=== PATIENT | male | born 1940 | race Caucasian/White ===

== ENCOUNTER 2017-04-14 19:19 | Inpatient (IN) ==
[2017-04-14] MEDS ORDERED: cefTRIAXone 1,000 MG in SODIUM CHLORIDE 0.9% 100 ML IV STA (19:47)
[2017-04-14] MEDS ORDERED: methylPREDNISolone SOD SUC 125 MG/2 ML VIAL IV STA (19:47)
[2017-04-14] MEDS ORDERED: AZITHROMYCIN INJ 500 MG in SODIUM CHLORIDE 0.9% 250 ML IV STA (19:47)
[2017-04-14] MEDS ORDERED: FUROSEMIDE 40 MG/4 ML VIAL IV STA (19:49)
--- NOTE | 2017-04-14 19:57 | Emergency Department Note ---
Arrival - Arrival Chief Complaint: Shortness of Breath ED Nursing Triage Note: Pt arrives via ems from home with complaints of weakness and worsening of condition over the last two months. Pt's family states that he wants him placed into a fpc. Pt is having increased weakness and shortness of breath. History of bone cancer and copd. Pt at time of triage has no complaints states that he feels better after ems gave breathing treatment. Denies any fever or productive cough. Mode of Arrival: Stretcher Time Seen by Provider: 04/14/17 19:47 - History of Present Illness HPI Narrative: This 76-year-old white male presents with 2 months of progressive cough, intermittent wheeze, dyspnea on exertion, orthopnea, PND, and pedal edema. He denies any chest pain, diaphoresis, nausea, vomiting, hemoptysis, or rapid heartbeat. The patient has a history of atrial fibrillation, bone cancer, and COPD. The patient lives with himself and has had significant problems taking care of himself with his increased debility and would be interested in fpc placement. Currently he is in no acute medical distress. Onset (ago): month(s) (Patient presents with 2 months of decline) Allergies/Adverse Reactions: Allergies Allergy/AdvReac Type Severity Reaction Status Date / Time Iodinated Contrast Media - Allergy Severe ANAPHYLAXIS Verified 02/23/17 09:33 Oral and Home Medications: Home Medications Medication Instructions Recorded Confirmed Type Apixaban [Eliquis] 2.5 mg PO BID 02/22/17 04/14/17 History Budesonide/Formoterol 160-4.5 2 puff INH BID 02/22/17 04/14/17 History [Symbicort 160-4.5] Ipratropium/Albuterol Inhaler 1 puff INH QID 02/22/17 04/14/17 History [Combivent Respimat Inhaler] Metoprolol Succinate 100 mg PO DAILY 02/22/17 04/14/17 History Pantoprazole Tab [Protonix Tab] 40 mg PO DAILY 02/22/17 04/14/17 History Diltiazem Cd Cap [Cardizem CD] 1 tablet PO DAILY 03/28/17 04/14/17 History Albuterol/Ipratropium Neb [Duoneb] 3 ml RESP TX RT BID 04/08/17 04/14/17 Rx Review of System - Review of System 12 point system: reviewed and no additional remarkable complaints except as stated - Review of System Constitutional: Present: as per HPI Respiratory: Present: as per HPI Cardiovascular: Present: as per HPI Gastrointestinal: Present: as per HPI Musculoskeletal: Present: as per HPI Medical,Surgical,& Family Hx - Medical History Cardio: History of: Cardiac Dysrhythmia (a-fib), Hypertension (medication) Neurology: History of: Cerebrovascular Accident No history of: Seizures Respiratory: History of: COPD, Pneumonia Comment Only: Respiratory Problems (had flu and pnuemonia vaccine) Gastrointestinal: History of: GERD Other: History of: Cancer (multiple Myloma) - Surgical History Cardiac Surgeries: Patient Denies: Femoral-Popliteal Bypass Graft, Cardiac Catheterization, Cardiac Surgery, Carotid Endarterectomy, Internal Defibrillator, Vascular Access Devices Thoracic Surgeries: Patient denies;: Kidney (Renal Surgery), Lithotripsy, Nephrectomy, Organ Transplant, Lobectomy Neurologic Surgeries: Patient denies: Neurologic Surgery HEENT Surgeries: Patient denies: Carotid Endarterectomy Abdominal Surgeries: Patient denies: Abdominal Surgery, Appendectomy, Cholecystectomy, Colonoscopy , Gastric Bypass Surgery, EGD, Hernia Repair, Splenectomy Reproductive Surgeries: Patient denies;: Breast Surgery, Cystoscopy, Genitourinary Surgery, Prostate Surgery, Vasectomy Orthopedic Surgeries: Surgical HX of;: Orthopedic Surgery (right arm and leg) - Family History Family History: Reports;: Family Hypertension - Social History Smoking Status: Former smoker Frequency of Alcohol Use: None Type of Drug Use: None Exam Physical Examination: GENERAL: Chronically ill-appearing fragile white male in no acute distress. HEENT: Normocephalic. No trauma. Moist mucous membranes. EOMI. PERRLA. ENT NML NECK: Supple. No adenopathy. CARDIAC: Irregular. No murmurs. Heart rate 150 CHEST: Scattered expiratory wheeze and rhonchi. No respiratory distress. O2 sat 98% ABDOMEN: Soft. Nontender. Active bowel sounds. EXTREMITIES: No trauma. Normal ROM. 2+ pedal edema. Decreased distal pulses SKIN: No diaphoresis. No rash. Bilateral lower extremity stasis dermatitis. NEURO: Alert. Neuro intact no focal deficits. Vital Signs: Vital Signs Temperature 98.6 F 04/14/17 19:19 Pulse Rate 106 H 04/14/17 21:10 Respiratory Rate 25 H 04/14/17 21:10 Blood Pressure 120/57 04/14/17 19:19 O2 Sat by Pulse Oximetry 100 04/14/17 21:10 Course - Reevaluation(s) Reevaluation #1: Have discussed with patient the results of his x-rays indicating evidence of multi lobar pneumonia requiring hospitalization. - Consultations Consultation #1: Discussed with hospitalist service who will admit for further evaluation treatment. Results - Labs CBC & BMP: 04/14/17 19:54 04/14/17 19:54 Labs: I have reviewed the laboratory noted the depressed hematocrit, calcium protein, and elevated sodium - Impressions EKG: Atrial fibrillation at 110 with normal QRS duration. Diffuse nonspecific ST segment changes but no acute injury pattern noted. - Diagnostic Findings Procedure: Chest x-ray: image reviewed by me, report reviewed by me (Bibasilar infiltrates and right upper lobe infiltrate) Disposition Clinical Impression: Multi lobar pneumonia, COPD, Atrial fibrillation Case discussed with: patient Disposition: Still a Patient Condition: Guarded Time of Disposition: 22:16
[2017-04-14] MEDS ORDERED: ALBUTEROL 2.5 MG/3 ML NEB RESP TX SCH (20:00)
[2017-04-14] MEDS ORDERED: AZITHROMYCIN 500 MG VIAL IV ONE (20:10)
[2017-04-14] MEDS ORDERED: cefTRIAXone 1,000 MG VIAL ONE (20:10)
[2017-04-14] MEDS ORDERED: FUROSEMIDE 100 MG/10 ML VIAL ONE (20:11)
[2017-04-14] MEDS ORDERED: SODIUM CHLORIDE 0.9% 100 ML IV ONE (20:11)
[2017-04-14] MEDS ORDERED: methylPREDNISolone SOD SUC 125 MG/2 ML VIAL ONE (20:11)
--- NOTE | 2017-04-14 20:19 | XRay Report ---
Portable chest April 14, 2017 Indication: Shortness of breath Comparison images performed February 01, 2017 Findings: Cardiomediastinal contours are stable. Diffuse emphysematous changes throughout. Development of coarsened interstitial markings throughout the right lung and left lung base. Question small right pleural effusion. Remote right distal clavicular fracture is noted. Impression: Development of coarsened interstitial markings within the bilateral lung bases and right upper lobe. Findings may represent early interstitial edema and/or diffuse inflammatory process. Suspect trace right effusion PROCEDURE INTERPRETED AT [facility] DEPARTMENT OF RADIOLOGY Final Report Signed by: Wesley Esqueda
[2017-04-14 21:11] LABS: Apearance,Urine CLEAR (Clear); Bacteria,Urine Occasional /HPF (Few); Blood, Urine Negative (Negative); Glucose,Urine (UA) Negative (Negative); Ketones,Urine 5 mg/dL (Negative); Mucus,Urine Occasional /LPF (Occasional); Nitrite,Urine Negative (Negative); Protein,Urine 30 MG/DL; RBC,Urine 5 /HPF (0-4); Urine Color Amber (Yellow); WBC,Urine 2 /HPF (0-6)
[2017-04-14 21:12] LABS: Bilirubin,Urine Small mg/dL (Negative)
[2017-04-14 21:32] LABS: Basophils % 0.1 % (0.0-0.8); Hemoglobin 10.6 GM/DL (14.0-18.0); Immature Granulocytes Absolute 0.14 #; Lymphocytes # 0.2 10*3/uL (1.4-4.0); Lymphocytes % 2.4 % (21.2-54.2); Mean Corpuscular HGB Conc 32.1 GM/DL (32-36); Mean Corpuscular Hemoglobin 33 PG (27-34); Mean Corpuscular Volume 103.8 FL (87-102); Mean Platelet Volume 13.7 FL (9.6-12.0); Monocytes # 0.1 10*3/uL (0.11-0.8); Monocytes % 1.3 % (1.7-12.7); Neutrophils # 6.7 10*3/uL (1.4-7.4); Neutrophils % 94.2 % (38.7-73.9); Platelet Count 118 T/CUMM (130-400); Red Blood Count 3.18 MC/CUMM (3.8-5.5); Red Cell Distribution Width 14.1 % (9.3-17.3); White Blood Count 7.1 T/CUMM (4-12)
[2017-04-14 21:49] LABS: INR 1.2; PT Patient Result 12.3 SECS; Partial Thromboplastin Time 35.9 SECS (0-40)
[2017-04-14 21:56] LABS: Alanine Aminotransferase 14 U/L (16-61); Albumin 2.3 G/DL (3.4-5.0); Alkaline Phosphatase 149 U/L (45-117); Aspartate Amino Transferase 12 U/L (0-37); Blood Urea Nitrogen 29 MG/DL (7-18); Calcium 7.5 MG/DL (8.5-10.1); Glucose 146 MG/DL (74-106); Osmolality,Calculated 300.4 MOS/KG (273-304); Potassium 4.5 MMOL/L (3.5-5.1); Sodium 147 MMOL/L (136-145); Troponin I Only < 0.015 NG/ML (0.00-0.045)
[2017-04-14 22:00] LABS: Lymphocytes 2 % (20-55); Platelet Estimate Decreased; Segmented Neutrophils 96 % (50-85); Total Cells Counted 100
[2017-04-14 22:01] LABS: Macrocytosis Slight
--- NOTE | 2017-04-14 23:06 | Hospitalist History & Physical ---
History of Present Illness Chief complaint: chronic SOB and wheezing History of present illness: Mr. Mars is a 76 year old male who presents with progressive SOB and wheezing. He states that he has been having some SOB for the past 4 months. It had progressed over the past 2 months. Four months ago, he was able to walk about 50 feet before getting out of breath. Over the past 2 months, he has only been able to walk about 10 feet. He is on 3L of oxygen at home, and he states that he has been on oxygen for the past year. He has a chronic unchanged cough. He notes some wheezing. EMS was called today. He states that the nebulizer treatment given by EMS helped. He denies any fevers/chills/chest pain/orthopnea/ PNd/LE swelling. He endorses a 70 pound weight loss in the past 4 months. He states that he has been eating and drinking on a regular basis. He also states that he sees a lot of doctors and does not recall their names. He wishes to be placed in a SNF. Home Medications Medication Instructions Recorded Confirmed Type Apixaban [Eliquis] 2.5 mg PO BID 02/22/17 04/14/17 History Budesonide/Formoterol 160-4.5 2 puff INH BID 02/22/17 04/14/17 History [Symbicort 160-4.5] Ipratropium/Albuterol Inhaler 1 puff INH QID 02/22/17 04/14/17 History [Combivent Respimat Inhaler] Metoprolol Succinate 100 mg PO DAILY 02/22/17 04/14/17 History Pantoprazole Tab [Protonix Tab] 40 mg PO DAILY 02/22/17 04/14/17 History Diltiazem Cd Cap [Cardizem CD] 1 tablet PO DAILY 03/28/17 04/14/17 History Albuterol/Ipratropium Neb [Duoneb] 3 ml RESP TX RT BID 04/08/17 04/14/17 Rx Allergies Allergy/AdvReac Type Severity Reaction Status Date / Time Iodinated Contrast Media - Allergy Severe ANAPHYLAXIS Verified 02/23/17 09:33 Oral and Medical,Surgical,& Family Hx - Medical History Cardio: History of: Cardiac Dysrhythmia (a-fib), Hypertension (medication) Neurology: History of: Cerebrovascular Accident No history of: Seizures Respiratory: History of: COPD, Pneumonia Comment Only: Respiratory Problems (had flu and pnuemonia vaccine) Gastrointestinal: History of: GERD Other: History of: Cancer (multiple Myloma) - Surgical History Cardiac Surgeries: Patient Denies: Femoral-Popliteal Bypass Graft, Cardiac Catheterization, Cardiac Surgery, Carotid Endarterectomy, Internal Defibrillator, Vascular Access Devices Thoracic Surgeries: Patient denies;: Kidney (Renal Surgery), Lithotripsy, Nephrectomy, Organ Transplant, Lobectomy Neurologic Surgeries: Patient denies: Neurologic Surgery HEENT Surgeries: Patient denies: Carotid Endarterectomy Abdominal Surgeries: Patient denies: Abdominal Surgery, Appendectomy, Cholecystectomy, Colonoscopy , Gastric Bypass Surgery, EGD, Hernia Repair, Splenectomy Reproductive Surgeries: Patient denies;: Breast Surgery, Cystoscopy, Genitourinary Surgery, Prostate Surgery, Vasectomy Orthopedic Surgeries: Surgical HX of;: Orthopedic Surgery (right arm and leg) - Family History Family History: Reports;: Family Hypertension - Social History Smoking Status: Former smoker (smoked 1/2 ppd "all my life", quit one year ago) Frequency of Alcohol Use: None Type of Drug Use: None 12 point system: reviewed and no additional remarkable complaints except as stated Exam - Constitutional Vitals: Period Temp Pulse Resp BP Sys/Persaud Pulse Ox Last 24 Hr 98.6 F-98.6 F 90-111 20-26 105-120/57-78 92-100 General appearance: over weight, disheveled (cachectic and chronically ill appearing) - Head Head exam: Present: normal inspection, normocephalic - Eye Eye exam: Present: EOMI Pupils: Present: DONNY - ENT ENT exam: Present: normal exam, normal oropharynx - Respiratory Respiratory exam: Present: decreased breath sounds, prolonged expiratory phase, rhonchi. Absent: rales, wheezes - Cardiovascular Cardiovascular exam: Present: irregular rhythm, tachycardia (mild tachycardia) - GI/Abdominal GI/Abdominal exam: Present: normal bowel sounds, soft. Absent: tenderness - Extremities Exam Extremities exam: Present: edema (1+ bilateral LE edema) - Neurological Exam Neurological exam: Present: alert, oriented X3 - Psychiatric Psychiatric exam: Present: normal affect, normal mood - Skin Skin exam: Present: dry (diffuse xerosis; no drainage) Results - Labs CBC & BMP: 04/14/17 19:54 04/14/17 19:54 Labs: platelet count at baseline (65-129) MCV: 104 - Impressions Patient is a 76 yo male who presents with progressive SOB and debility who is requesting group home placement. Active Issues: 1. COPD with mild exacerbation 2. history of chronic respiratory failure, on home o2 3. Deconditioning 4. Malnutrition 5. Weight loss 6. Xerosis 7. A-fib with RVR, mild 8. macrocytosis 9. Comorbid conditions: history of a-fib, multiple myeloma, HTN, chronic thrombocytopenia 10. Disposition: SNF vs rehab Plan: admit; parenteral steroids/antibiotic/bronchodilator/oxygen/PT, OT, nutrition/SW for SNF vs rehab, continue home medications as appropriate;on chronic anticoagulation; watch platelets; urea cream; check b12 given macrocytosis; basic lab work for evaluation for weight loss; will defer further imaging to hospitalist Plan of care may be modified as more information becomes available. - Diagnostic Findings Procedure: Chest x-ray: image reviewed by me (coarse inerstitial markings in bilateral lung bases and right upper lobe)
[2017-04-14] MEDS ORDERED: ALBUTEROL/IPRATROPIUM 3 ML NEB RESP TX PRN (23:15)
[2017-04-14] MEDS ORDERED: UREA TOP PRN (23:17)
[2017-04-14] MEDS ORDERED: [UNRECOGNIZED DRUG - OTHER] TOP PRN (23:17)
[2017-04-15] MEDS: methylPREDNISolone SOD SUC 125 MG/2 ML VIAL IV SCH ×3 (03:56→21:23)
[2017-04-15 04:45] LABS: Basophils % 0.1 % (0.0-0.8); Hematocrit 30.6 VOL% (42.0-52.0); Hemoglobin 10.2 GM/DL (14.0-18.0); Immature Granulocytes % 0.9 %; Immature Granulocytes Absolute 0.08 #; Lymphocytes # 0.2 10*3/uL (1.4-4.0); Lymphocytes % 2.6 % (21.2-54.2); Mean Corpuscular HGB Conc 33.3 GM/DL (32-36); Mean Corpuscular Hemoglobin 34 PG (27-34); Mean Corpuscular Volume 100.7 FL (87-102); Mean Platelet Volume 13.2 FL (9.6-12.0); Monocytes # 0.2 10*3/uL (0.11-0.8); Monocytes % 2.7 % (1.7-12.7); Neutrophils # 7.9 10*3/uL (1.4-7.4); Neutrophils % 93.7 % (38.7-73.9); Platelet Count 120 T/CUMM (130-400); Red Blood Count 3.04 MC/CUMM (3.8-5.5); Red Cell Distribution Width 14.1 % (9.3-17.3); White Blood Count 8.4 T/CUMM (4-12)
[2017-04-15 05:17] LABS: Calcium 7.6 MG/DL (8.5-10.1); Magnesium 1.8 MG/DL (1.8-2.4); Osmolality,Calculated 295.7 MOS/KG (273-304); Potassium 3.7 MMOL/L (3.5-5.1)
[2017-04-15 05:48] LABS: Hypochromasia 1+; Lymphocytes 4 % (20-55); Segmented Neutrophils 94 % (50-85); Total Cells Counted 100
[2017-04-15 05:49] LABS: Macrocytosis Slight; Platelet Estimate Adequate
--- NOTE | 2017-04-15 07:18 | EKG Report ---
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
--- NOTE | 2017-04-15 08:03 | EKG Report ---
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
[2017-04-15] MEDS: DOXYCYCLINE HYCLATE 100 MG CAPSULE PO SCH ×2 (08:34→21:23)
[2017-04-15] MEDS: PANTOPRAZOLE 40 MG TABLET PO SCH (08:35)
[2017-04-15] MEDS: APIXABAN 2.5 MG TABLET PO SCH ×2 (08:35→21:23)
[2017-04-15] MEDS: METOPROLOL TARTRATE 25 MG TABLET PO SCH ×2 (08:35→21:23)
--- NOTE | 2017-04-15 10:33 | Case Mgmt Physician Query Form ---
TB Signs and Symptoms Screening ([place]) INSTRUCTIONS: To be completed annually on residents/staff with a significant Tuberculin Skin Test (TST) upon admission/hire or a prior significant TST. To be completed on all staff at hire. Please respond to each listed symptom with an (X) in either the "YES" or "NO" box. Do you currently have any of the following symptoms: YES NO ( ) (x ) A cough If yes, is it: ( ) Productive ( ) Non- productive ( ) (x ) Hemoptysis (spitting up blood) ( ) (x ) Chest pains ( ) (x ) Weight Loss ( ) (x ) Fever ( ) (x ) Night Sweats ( ) (x ) Weakness ( ) (x ) Loss of Appetite ( ) (x ) Difficulty Breathing If you answered YES" to any of the above questions, how long have symptoms been present? Comments: If you have any questions, please contact me. Thank you, Sun COTA P: [phone] F: [phone] E: [email or web address]
[2017-04-15] MEDS ORDERED: TUBERCULIN SKIN TEST 0.1 ML SYRINGE INTRADERM ONE (12:00)
--- NOTE | 2017-04-15 13:28 | ECHO Report ---
Jerad Denis Exam Date: 04/15/2017 11:59 Referring Physician: Technologist: Savanah Jordan Age: 76 Ht (in): 76 Wt (lb): 160 Gender: M Exam Location: [facility] Echo Indications: Bone mass, COPD, A fib, SOB BP: 116 / 67 HR: 93 Rhythm: A fib Technical Quality: Technically difficult study IMPRESSIONS Left ventricular ejection fraction is estimated at 50-55 %. Mildly increased right ventricular size. Moderately increased right atrial size. Moderately increased left atrial size. Mild mitral annular and leaflet calcification . Trace mitral valve regurgitation. Aortic valve sclerosis. No aortic valve regurgitation. Moderate tricuspid valve regurgitation. [id number]. Trace pulmonary valve regurgitation. Trivial pericardial effusion. Normal size aortic root and proximal ascending aorta. MEASUREMENTS (Male / Female) Normal Values 2D ECHO LV Diastolic Diameter PLAX 5.5 cm 4.2 - 5.9 / 3.9 - 5.3 cm LV Systolic Diameter PLAX 3.1 cm LV Fractional Shortening PLAX 43.0 % IVS Diastolic Thickness 1.5 cm 0.6 - 1.0 / 0.6 - 0.9 cm LVPW Diastolic Thickness 1.6 cm 0.6 - 1.0 / 0.6 - 0.9 cm Aortic Root Diameter 3.3 cm LA Systolic Diameter LX 4.0 cm 3.0 - 4.0 / 2.7 - 3.8 cm DOPPLER TR Peak Velocity 337.0 cm/s TR Peak Gradient 45.4 mmHg FINDINGS Left Ventricle Left ventricular ejection fraction is estimated at 50-55 %. Right Ventricle Mildly increased right ventricular size. Right Atrium Moderately increased right atrial size. Left Atrium Moderately increased left atrial size. Mitral Valve Mild mitral annular and leaflet calcification .trace mitral valve regurgitation. Aortic Valve Aortic valve sclerosis. No aortic valve regurgitation. Tricuspid Valve Morphologically normal tricuspid valve. Moderate tricuspid valve regurgitation. [id number]. Pulmonic Valve Morphologically normal pulmonic valve. Trace pulmonary valve regurgitation. Pericardium Trivial pericardial effusion. Aorta Normal size aortic root and proximal ascending aorta. Shelton Gann (Electronically Signed) Final Date: 15 April 2017 13:27
--- NOTE | 2017-04-15 15:20 | Hospitalist Progress Note ---
Assessment and Plan (1) COPD with exacerbation Status: Acute Assessment and plan: duonebs, steroids, antibiotics Current Visit: Yes (2) Debility Status: Acute Assessment and plan: PT/OT Interested in swing bed placement Current Visit: No (3) Multiple myeloma Status: Acute Current Visit: No (4) A-fib Status: Acute Current Visit: No (5) Anemia Status: Acute Assessment and plan: B12 low normal, will replace Current Visit: Yes Hospitalist: Subjective Interval history: No acute events overnight. Patient reports that his breathing is better today. Exam - Constitutional Vitals: Period Temp Pulse Resp BP Sys/Persaud Pulse Ox Last 24 Hr 96.3 F-98.6 F 89-111 15-26 103-120/57-83 92-100 General appearance: normal weight - Head Head exam: Present: normocephalic, atraumatic - Eye Eye exam: Present: EOMI Pupils: Present: DONNY - ENT ENT exam: Present: normal exam - Neck Neck exam: Present: normal inspection - Respiratory Respiratory exam: Present: clear to auscultation bilaterally. Absent: rhonchi, wheezes - Cardiovascular Cardiovascular exam: Present: regular rate and rhythm - GI/Abdominal GI/Abdominal exam: Present: normal bowel sounds, soft. Absent: tenderness, rebound - Extremities Exam Extremities exam: Present: normal inspection - Back Exam Back exam: Present: normal inspection - Neurological Exam Neurological exam: Present: alert - Psychiatric Psychiatric exam: Present: normal affect, normal mood - Skin Skin exam: Present: warm, intact Results - Labs CBC & BMP: 04/15/17 03:53 04/15/17 03:53
[2017-04-15] MEDS: ALBUTEROL/IPRATROPIUM 3 ML NEB RESP TX SCH ×2 (19:26→22:43)
[2017-04-16] MEDS: ALBUTEROL/IPRATROPIUM 3 ML NEB RESP TX SCH ×6 (02:57→22:44)
[2017-04-16 05:12] LABS: Basophils % 0.1 % (0.0-0.8); Hemoglobin 9.6 GM/DL (14.0-18.0); Immature Granulocytes % 1.5 %; Immature Granulocytes Absolute 0.15 #; Lymphocytes # 0.3 10*3/uL (1.4-4.0); Lymphocytes % 2.7 % (21.2-54.2); Mean Corpuscular Hemoglobin 33 PG (27-34); Mean Platelet Volume 12.9 FL (9.6-12.0); Monocytes # 0.5 10*3/uL (0.11-0.8); Monocytes % 4.5 % (1.7-12.7); Neutrophils # 9.3 10*3/uL (1.4-7.4); Neutrophils % 91.2 % (38.7-73.9); Platelet Count 152 T/CUMM (130-400); Red Blood Count 2.94 MC/CUMM (3.8-5.5); Red Cell Distribution Width 14.1 % (9.3-17.3); White Blood Count 10.2 T/CUMM (4-12)
[2017-04-16 05:43] LABS: Magnesium 1.9 MG/DL (1.8-2.4); Osmolality,Calculated 296.8 MOS/KG (273-304); Potassium 3.8 MMOL/L (3.5-5.1)
[2017-04-16] MEDS: methylPREDNISolone SOD SUC 125 MG/2 ML VIAL IV SCH ×3 (05:47→21:00)
[2017-04-16 07:30] LABS: Band Neutrophils 1 % (0-10); Hypochromasia 2+; Lymphocytes 1 % (20-55); Microcytosis Slight; Platelet Estimate Adequate; Segmented Neutrophils 96 % (50-85); Total Cells Counted 100
[2017-04-16] MEDS ORDERED: DEXTROSE 50% 25 GM/50 ML SYRINGE IV PRN (07:49)
[2017-04-16] MEDS ORDERED: GLUCAGON 1 MG VIAL IM PRN (07:49)
[2017-04-16] MEDS: PANTOPRAZOLE 40 MG TABLET PO SCH (08:37)
[2017-04-16] MEDS: METOPROLOL TARTRATE 25 MG TABLET PO SCH ×2 (08:37→21:00)
[2017-04-16] MEDS: DOXYCYCLINE HYCLATE 100 MG CAPSULE PO SCH ×2 (08:37→21:00)
[2017-04-16] MEDS: APIXABAN 2.5 MG TABLET PO SCH ×2 (08:37→21:00)
[2017-04-16] MEDS: CYANOCOBALAMIN 1000 MCG/1 ML VIAL SUBCUT SCH (09:17)
[2017-04-16] MEDS: INSULIN LISPRO 100 UNIT/ML SUBCUT SCH ×3 (12:14→21:00)
--- NOTE | 2017-04-16 12:57 | Hospitalist Progress Note ---
Assessment and Plan (1) COPD with exacerbation Status: Acute Assessment and plan: duonebs, steroids, antibiotics Glucoses elevated on steroids, starting SSI Will check hemoglobin A1C in am Current Visit: Yes (2) Debility Status: Acute Assessment and plan: PT/OT Interested in swing bed placement Current Visit: No (3) Multiple myeloma Status: Acute Current Visit: No (4) A-fib Status: Acute Current Visit: No (5) Anemia Status: Acute Assessment and plan: B12 low normal, will replace Current Visit: Yes Hospitalist: Subjective Interval history: No acute events overnight. Patient's breathing is a little better today. Exam - Constitutional Vitals: Period Temp Pulse Resp BP Sys/Persaud Pulse Ox Last 24 Hr 97.1 F-98.9 F 78-106 16-20 112-140/73-84 92-99 General appearance: normal weight - Head Head exam: Present: normocephalic, atraumatic - Eye Eye exam: Present: EOMI Pupils: Present: DONNY - ENT ENT exam: Present: normal exam - Neck Neck exam: Present: normal inspection - Respiratory Respiratory exam: Present: clear to auscultation bilaterally. Absent: rhonchi, wheezes - Cardiovascular Cardiovascular exam: Present: regular rate and rhythm - GI/Abdominal GI/Abdominal exam: Present: normal bowel sounds, soft. Absent: tenderness, rebound - Extremities Exam Extremities exam: Present: normal inspection - Back Exam Back exam: Present: normal inspection - Neurological Exam Neurological exam: Present: alert - Psychiatric Psychiatric exam: Present: normal affect, normal mood - Skin Skin exam: Present: warm, intact Results - Labs CBC & BMP: 04/16/17 05:03 04/16/17 05:03
[2017-04-16] MEDS ORDERED: guaiFENesin 200 MG/10 ML UDCUP PO PRN (12:59)
[2017-04-16] MEDS ORDERED: IPRATROPIUM/ALBUTEROL INHALER INH SCH (13:00)
[2017-04-16] MEDS: guaiFENesin/DM ER 600-30 MG TABLET PO SCH (21:00)
[2017-04-16] MEDS: BUDESONIDE/FORMOTEROL 160-4.5 INHALER 6 GM INH SCH (21:01)
[2017-04-17] MEDS: ALBUTEROL/IPRATROPIUM 3 ML NEB RESP TX SCH ×5 (02:36→20:30)
[2017-04-17 05:13] LABS: Basophils % 0.1 % (0.0-0.8); Hematocrit 30.1 VOL% (42.0-52.0); Hemoglobin 9.6 GM/DL (14.0-18.0); Immature Granulocytes % 1.8 %; Immature Granulocytes Absolute 0.19 #; Lymphocytes # 0.1 10*3/uL (1.4-4.0); Lymphocytes % 1.4 % (21.2-54.2); Mean Corpuscular HGB Conc 31.9 GM/DL (32-36); Mean Corpuscular Hemoglobin 33 PG (27-34); Mean Corpuscular Volume 102.7 FL (87-102); Mean Platelet Volume 12.1 FL (9.6-12.0); Monocytes # 0.5 10*3/uL (0.11-0.8); Monocytes % 4.4 % (1.7-12.7); NRBC # 0.02 10*3/uL; Neutrophils # 9.5 10*3/uL (1.4-7.4); Neutrophils % 92.3 % (38.7-73.9); Platelet Count 178 T/CUMM (130-400); Red Blood Count 2.93 MC/CUMM (3.8-5.5); Red Cell Distribution Width 14.1 % (9.3-17.3); White Blood Count 10.3 T/CUMM (4-12)
[2017-04-17] MEDS: methylPREDNISolone SOD SUC 125 MG/2 ML VIAL IV SCH ×2 (05:21→15:56)
[2017-04-17 05:38] LABS: Lymphocytes 2 % (20-55); Myelocytes 2 %; Segmented Neutrophils 95 % (50-85)
[2017-04-17 05:39] LABS: Platelet Estimate Normal; Total Cells Counted 100
[2017-04-17 05:42] LABS: Calcium 7.7 MG/DL (8.5-10.1); Magnesium 1.8 MG/DL (1.8-2.4); Osmolality,Calculated 298.8 MOS/KG (273-304); Potassium 3.5 MMOL/L (3.5-5.1)
[2017-04-17] MEDS: CYANOCOBALAMIN 1000 MCG/1 ML VIAL SUBCUT SCH (10:08)
[2017-04-17] MEDS: DOXYCYCLINE HYCLATE 100 MG CAPSULE PO SCH ×2 (10:09→21:20)
[2017-04-17] MEDS: PANTOPRAZOLE 40 MG TABLET PO SCH (10:09)
[2017-04-17] MEDS: DILTIAZEM CD 240 MG CAPSULE PO SCH (10:09)
[2017-04-17] MEDS: APIXABAN 2.5 MG TABLET PO SCH ×2 (10:10→21:20)
[2017-04-17] MEDS: METOPROLOL TARTRATE 25 MG TABLET PO SCH ×2 (10:10→21:20)
[2017-04-17] MEDS: BUDESONIDE/FORMOTEROL 160-4.5 INHALER 6 GM INH SCH ×2 (10:10→21:21)
[2017-04-17] MEDS: INSULIN LISPRO 100 UNIT/ML SUBCUT SCH ×4 (10:12→21:21)
[2017-04-17] MEDS: guaiFENesin/DM ER 600-30 MG TABLET PO SCH ×2 (10:42→21:20)
--- NOTE | 2017-04-17 12:06 | Hospitalist Progress Note ---
Assessment and Plan (1) COPD with exacerbation Status: Acute Assessment and plan: duonebs, steroids, antibiotics Glucoses elevated on steroids, starting SSI Hemoglobin A1C- 6.1, does not meet requirement for DM Current Visit: Yes (2) Debility Status: Acute Assessment and plan: PT/OT Interested in swing bed placement Current Visit: No (3) Multiple myeloma Status: Acute Current Visit: No (4) A-fib Status: Acute Current Visit: No (5) Anemia Status: Acute Assessment and plan: B12 low normal, will replace Current Visit: Yes Hospitalist: Subjective Interval history: No acute events overnight. Patient coughing up copious amounts of sputum. He reports that it seems to be improving. He still sounds junky. Exam - Constitutional Vitals: Period Temp Pulse Resp BP Sys/Persaud Pulse Ox Last 24 Hr 97.9 F-98.3 F 63-110 17-20 105-136/59-78 89-99 General appearance: normal weight - Head Head exam: Present: normocephalic, atraumatic - Eye Eye exam: Present: EOMI Pupils: Present: DONNY - ENT ENT exam: Present: normal exam - Neck Neck exam: Present: normal inspection - Respiratory Respiratory exam: Present: clear to auscultation bilaterally, other (coarse breath sounds). Absent: wheezes - Cardiovascular Cardiovascular exam: Present: regular rate and rhythm - GI/Abdominal GI/Abdominal exam: Present: normal bowel sounds, soft. Absent: tenderness, rebound - Extremities Exam Extremities exam: Present: normal inspection - Back Exam Back exam: Present: normal inspection - Neurological Exam Neurological exam: Present: alert, oriented X3 - Psychiatric Psychiatric exam: Present: normal affect, normal mood - Skin Skin exam: Present: warm, intact Results - Labs CBC & BMP: 04/17/17 05:00 04/17/17 05:00
[2017-04-17] MEDS ORDERED: TEMAZEPAM 15 MG CAPSULE PO PRN (21:02)
[2017-04-18] MEDS: methylPREDNISolone SOD SUC 125 MG/2 ML VIAL IV SCH ×4 (00:04→23:00)
[2017-04-18] MEDS: ALBUTEROL/IPRATROPIUM 3 ML NEB RESP TX SCH ×7 (01:09→22:46)
[2017-04-18] MEDS: guaiFENesin/DM ER 600-30 MG TABLET PO SCH ×2 (09:36→20:54)
[2017-04-18] MEDS: APIXABAN 2.5 MG TABLET PO SCH ×2 (09:37→20:55)
[2017-04-18] MEDS: METOPROLOL TARTRATE 25 MG TABLET PO SCH ×2 (09:38→20:55)
[2017-04-18] MEDS: DILTIAZEM CD 240 MG CAPSULE PO SCH (09:38)
[2017-04-18] MEDS: PANTOPRAZOLE 40 MG TABLET PO SCH (09:38)
[2017-04-18] MEDS: CYANOCOBALAMIN 1000 MCG/1 ML VIAL SUBCUT SCH (09:42)
[2017-04-18] MEDS: DOXYCYCLINE HYCLATE 100 MG CAPSULE PO SCH ×2 (09:42→20:54)
[2017-04-18] MEDS: BUDESONIDE/FORMOTEROL 160-4.5 INHALER 6 GM INH SCH ×2 (09:43→20:55)
--- NOTE | 2017-04-18 11:45 | Hospitalist Progress Note ---
Assessment and Plan (1) COPD with exacerbation Status: Acute Assessment and plan: Impression: 1. COPD with acute exacerbation 2. Atrial fibrillation 3. Deconditioning Plan: Transfer to swing bed when accepted. This note was completed using [employer] voice recognition software. There may be shingler errors as a result. Current Visit: Yes Hospitalist: Subjective Interval history: Follow-up COPD with acute exacerbation and atrial fibrillation. The patient denies any dyspnea at rest. He is agreeable to going to the swing bed today, and would like to go today if accepted. He continues with a cough productive of white or yellow sputum. Exam - Constitutional Vitals: Period Temp Pulse Resp BP Sys/Persaud Pulse Ox Last 24 Hr 95 F-98.8 F 70-106 16-20 94-136/66-83 90-100 Vital signs are noted above. Heart is irregular with no murmur. He has a few scattered rales throughout the chest. Abdomen is soft with no mass. He is awake and alert. Results - Labs CBC & BMP: 04/17/17 05:00 04/17/17 05:00 Lab Results: I have reviewed the past 24 hour labs
[2017-04-18] MEDS: INSULIN LISPRO 100 UNIT/ML SUBCUT SCH ×4 (13:05→20:55)
--- NOTE | 2017-04-18 14:59 | Physician Query Form ---
CLICK EDIT DOCUMENT TO SELECT QUERY ANSWER --> OK --> SIGN Margot Acevedo RN Clinical Esthetician Permanent Makeup Artist W) [phone] (f) [phone] [email or web address] PROVIDERS: Make your selection(s) from the choices in EACH section by typing an "x" and enter comments in the comment section. Please use your independent medical judgment in providing your response. This request does not imply that any particular answer is desired or expected. CLINICAL INDICATORS: (Providers should not edit this section) Based on documentation of "Acute COPD with exacerbation" "Progressive shortness of breath and wheezing" "On 3L oxygen at home" Oxygen applied at 4L/NC. If possible, please further clarify the type and acuity of respiratory diagnosis : ACUITY: ( ) Acute ( x) Chronic ( ) Acute on Chronic TYPE: ( ) Respiratory failure with hypoxia (x ) Respiratory failure with hypercapnia ( ) Respiratory Arrest ( ) Postprocedural/postoperative respiratory failure ( ) Respiratory Insufficiency ( ) ARDS (Adult/Acute Respiratory Distress Syndrome) ( ) Other, please specify: ( ) Clinically unable to determine Recognized criteria for respiratory failure PH <7.35 or >7.45 PO2 <60 PCO2 >50 RR >24 O2 Sat <90% on RA or <95% on O2 Use of accessory muscles Unable to speak in full sentences Intubation is not required COMMENTS: PLEASE ALSO DOCUMENT RESPONSE IN PROGRESS NOTES AND/OR DISCHARGE SUMMARY Use of terms such as suspected, likely, or probable (associated with a specific diagnosis that is being evaluated, monitored, or treated as if it exists) are acceptable and can be restated in the discharge summary if not ruled out. MTDD
--- NOTE | 2017-04-18 15:04 | Physician Query Form ---
CLICK EDIT DOCUMENT TO SELECT QUERY ANSWER --> OK --> SIGN PROVIDERS: Make your selection(s) from the choices in EACH section by typing an "x" and enter comments in the comment section. Please use your independent medical judgment in providing your response. This request does not imply that any particular answer is desired or expected. CLINICAL INDICATORS: (Providers should not edit this section) Height: 6'2" Weight: 160 Pricing/Signage Team Member BMI: 19.5 Nutritional supplements: Add trial Enlive to pop Community Health Educator notes: Monitor intake adequacy, diet ion Other clinical notes: "He endorses a 70 pound weight loss in the past 4 months." Based on the above, which following choice most accurately represents the patient's nutritional status? ( ) Malnutrition ( ) mild ( ) moderate ( ) severe ( x) Protein calorie malnutrition ( ) mild ( ) moderate ( x) severe ( ) Emaciation due to malnutrition ( ) Nutritional marasmus ( ) Cachexia ( ) Underweight ( ) No nutritional deficiency ( ) Other, please specify: ( ) Clinically unable to determine Mild Malnutrition (BMI < 18.5, % Normal Body Weight 85-95%) Moderate Malnutrition (BMI < 17, % Normal Body Weight 75-85%) Severe Malnutrition (BMI < 16, % Normal Body Weight < 75%) Source: [place] COMMENTS: PLEASE ALSO DOCUMENT RESPONSE IN PROGRESS NOTES AND/OR DISCHARGE SUMMARY Use of terms such as suspected, likely, or probable (associated with a specific diagnosis that is being evaluated, monitored, or treated as if it exists) are acceptable and can be restated in the discharge summary if not ruled out. MTDD
[2017-04-18] MEDS ORDERED: ZINC OXIDE PASTE 113 GM TUBE TOP PRN (16:39)
[2017-04-19] MEDS: ALBUTEROL/IPRATROPIUM 3 ML NEB RESP TX SCH ×6 (02:00→23:42)
[2017-04-19] MEDS: methylPREDNISolone SOD SUC 125 MG/2 ML VIAL IV SCH ×3 (05:59→21:47)
[2017-04-19] MEDS: INSULIN LISPRO 100 UNIT/ML SUBCUT SCH ×4 (08:53→22:00)
[2017-04-19] MEDS: DILTIAZEM CD 240 MG CAPSULE PO SCH (08:53)
[2017-04-19] MEDS: guaiFENesin/DM ER 600-30 MG TABLET PO SCH ×2 (08:53→21:47)
[2017-04-19] MEDS: APIXABAN 2.5 MG TABLET PO SCH ×2 (08:54→21:47)
[2017-04-19] MEDS: CYANOCOBALAMIN 1000 MCG/1 ML VIAL SUBCUT SCH (08:54)
[2017-04-19] MEDS: PANTOPRAZOLE 40 MG TABLET PO SCH (08:54)
[2017-04-19] MEDS: DOXYCYCLINE HYCLATE 100 MG CAPSULE PO SCH ×2 (08:54→21:47)
[2017-04-19] MEDS: METOPROLOL TARTRATE 25 MG TABLET PO SCH ×2 (08:54→21:47)
[2017-04-19] MEDS: BUDESONIDE/FORMOTEROL 160-4.5 INHALER 6 GM INH SCH ×2 (08:57→21:48)
[2017-04-19] MEDS ORDERED: SKIN HEALING OINT (AQUAPHOR) 50 GM TUBE TOP PRN (10:15)
--- NOTE | 2017-04-19 11:36 | Hospitalist Progress Note ---
Assessment and Plan (1) COPD with exacerbation Status: Acute Assessment and plan: Impression: 1. COPD with acute exacerbation 2. Atrial fibrillation 3. Deconditioning 4. Multiple myeloma Plan: Consult oncology for their recommendations regarding chemotherapy. Continue to work on discharge planning. This note was completed using [employer] voice recognition software. There may be ticket printer and tagger errors as a result. Current Visit: Yes Hospitalist: Subjective Interval history: Follow-up COPD and atrial fibrillation. The patient was accepted into a swing bed until he found out that he was taking some sort of expensive chemotherapy, and then they declined to take him. His second choices at the [facility], and we are in the process of sending information to them, but it may take over a week to get him accepted and admitted. We are now trying to work out some sort of interim arrangements so that he can go somewhere to receive his chemotherapy for his multiple myeloma. Exam - Constitutional Vitals: Period Temp Pulse Resp BP Sys/Persaud Pulse Ox Last 24 Hr 97.6 F-98.8 F 79-116 16-20 118-134/66-80 91-98 Vital signs are noted above. Heart is irregular with a soft systolic murmur and no gallop. Lungs are clear with no rales or wheezes. He is awake and alert Results - Labs CBC & BMP: 04/17/17 05:00 04/17/17 05:00 Lab Results: I have reviewed the past 24 hour labs
[2017-04-20] MEDS: ALBUTEROL/IPRATROPIUM 3 ML NEB RESP TX SCH ×3 (04:11→11:34)
[2017-04-20] MEDS: methylPREDNISolone SOD SUC 125 MG/2 ML VIAL IV SCH ×2 (05:56→14:23)
[2017-04-20 08:13] LABS: Basophils % 0.1 % (0.0-0.8); Hematocrit 31.2 VOL% (42.0-52.0); Hemoglobin 10.2 GM/DL (14.0-18.0); Immature Granulocytes % 1.1 %; Lymphocytes # 0.1 10*3/uL (1.4-4.0); Lymphocytes % 1.1 % (21.2-54.2); Mean Corpuscular HGB Conc 32.7 GM/DL (32-36); Mean Corpuscular Hemoglobin 34 PG (27-34); Mean Corpuscular Volume 102.6 FL (87-102); Mean Platelet Volume 12.1 FL (9.6-12.0); Monocytes # 0.1 10*3/uL (0.11-0.8); Monocytes % 1.5 % (1.7-12.7); Neutrophils # 8.8 10*3/uL (1.4-7.4); Neutrophils % 96.2 % (38.7-73.9); Platelet Count 190 T/CUMM (130-400); Red Blood Count 3.04 MC/CUMM (3.8-5.5); Red Cell Distribution Width 14.2 % (9.3-17.3); White Blood Count 9.2 T/CUMM (4-12)
[2017-04-20] MEDS: APIXABAN 2.5 MG TABLET PO SCH (08:20)
[2017-04-20] MEDS: PANTOPRAZOLE 40 MG TABLET PO SCH (08:20)
[2017-04-20] MEDS: guaiFENesin/DM ER 600-30 MG TABLET PO SCH (08:20)
[2017-04-20] MEDS: DILTIAZEM CD 240 MG CAPSULE PO SCH (08:20)
[2017-04-20] MEDS: CYANOCOBALAMIN 1000 MCG/1 ML VIAL SUBCUT SCH (08:20)
[2017-04-20] MEDS: METOPROLOL TARTRATE 25 MG TABLET PO SCH (08:20)
[2017-04-20] MEDS: DOXYCYCLINE HYCLATE 100 MG CAPSULE PO SCH (08:20)
[2017-04-20] MEDS: INSULIN LISPRO 100 UNIT/ML SUBCUT SCH ×2 (08:21→13:14)
[2017-04-20] MEDS: BUDESONIDE/FORMOTEROL 160-4.5 INHALER 6 GM INH SCH (08:21)
--- NOTE | 2017-04-20 08:33 | Oncology Progress Note ---
Oncology Subjective PN Interval history: This is a repeat dictation of something that I have already done today. This patient has IgA myeloma and is on treatment. I have dictated this once and it has disappeared. Mr. Mars is on Velcade 2.5 mg subcu weekly for IgA myeloma.His most recent protein studies were done March 22, 2017 and included an IgA level of 1580 with a kappa free light chain level of 61.81 mg/dL and a monoclonal spike of 1.1 g/ dL or 16.8% was also documented at that time. He is clearly responding to chemotherapy. He has been receiving Velcade 2.5 mg subcu weekly. He has actually not missed any doses. He was due the next dose yesterday, April 19 but this is no major problem. What is a problem is the fact that I am unable to access previous electronic medical records on this patient. They are not available to download and I cannot access them although they are listed. I discussed this with Dr. Oropeza and he said the same problem. The patient was hospitalized at [facility] from November 26 - December 11, 2015 with elevated globulins and ultimately was found to have criteria that establish that he had myeloma. At the time of his initial diagnosis, he was found to have a kappa free light chain level of 700 to milligrams per deciliter and he had 2 monoclonal M spike' s. He has been on Velcade 2.5 mg subcu weekly and he has also been on dexamethasone 40 mg p.o. weekly and he has been responding. Some of his treatment has been given here at [facility] and some of it has been given elsewhere, including my office. Past medical history: Allergies: No known allergies His past medical history is positive for atrial fibrillation, COPD, stroke and hypertension. Family history is positive for breast cancer in his mother. Social history: The patient has been a heavy smoker, smoking well over a pack on some days but averaging a pack a day. He does not use alcohol. ROS Gen.: He has been chronically ill for quite some time. Eyes: No history of chronic disease, infections or visual loss. 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 No history of hemoptysis, chronic pleurisy or long-term or chronic infections Cardiovascular: He has a history of atrial fibrillation and stroke. GI: He has a history of hematochezia. No history of upper GI bleeding, melena, dysphagia, odynophagia, liver disease, gallbladder disease or pancreatic disease. : Positive for urinary frequency and back pain. No history of kidney stones, chronic kidney infections or hematuria. Musculoskeletal: Positive for chronic back pain. Neurologic: In spite of the history of having a stroke, the patient reports no history of seizures, convulsions or paralysis. Psychiatric: No history of chronic psychiatric illness or psychiatric medications. Lymphatic: No history of significant or long-term lymphadenopathy Hematologic: No history of anemia, bleeding disorders or blood dyscrasias or long-term elevation or depression white cell count or petechiae prior to onset of his present illness. Skin: No history of chronic skin infections or rashes or significant skin lesions. Physical examination: General: The patient is acutely and chronically ill-appearing. Eyes: Normal lids and conjunctivae. ENT: His teeth are in poor repair. His oral mucosa and pharynx appear relatively normal although his mouth is dry. Neck: His trachea is midline. His thyroid appears normal. Lungs: He has markedly decreased breath sounds throughout his lung wong with scattered rhonchi and a prolonged expiratory phase of respiration. Cardiovascular: Currently his heart rhythm is regular without murmur, gallop or rub. There is no jugular venous distention or cyanosis. Abdomen: No ascites, masses, organomegaly, distention or tenderness. Bowel sounds are normal. Musculoskeletal: There is no focal muscle atrophy or bone or joint deformity but the patient is generally weak. Neurologic: I do not detect any focal neurologic deficits. Nodes: I palpate no submandibular, cervical, supraclavicular or axillary adenopathy. Skin: He has multiple ecchymoses over his extremities. Impression: IgA myeloma on active chemotherapy and responding to it Anemia that is multifactorial Severe COPD Lab work today includes: White cell count 9200 Hemoglobin 10.2 Platelet count 190,000 Renal function normal I am going to continue Velcade while the patient's here. His correct that it will be difficult for him to be sent to a swing bed and to continue Velcade outpatient. The last time he went to a swing bed it was at the [facility] and they were able to bring him back and forth for chemotherapy but I do not think this will happen with the residential or with another swing bed. I will follow him with you. Thank you for consulting me. Exam - Constitutional Vitals: Period Temp Pulse Resp BP Sys/Persaud Pulse Ox Last 24 Hr 97.5 F-98.5 F 61-97 16-20 127-132/73-81 80-100 Results - Labs CBC & BMP: 04/20/17 08:05 04/20/17 08:05
[2017-04-20 08:41] LABS: Band Neutrophils 1 % (0-10); Hypochromasia 1+; Lymphocytes 2 % (20-55); Macrocytosis 1+; Platelet Estimate Adequate; Segmented Neutrophils 92 % (50-85); Total Cells Counted 100
[2017-04-20] MEDS ORDERED: BORTEZOMIB SUBCUT ONE (08:48)
[2017-04-20] MEDS ORDERED: SODIUM CHLORIDE 0.9% SUBCUT ONE (08:48)
[2017-04-20] MEDS ORDERED: DEXAMETHASONE 4 MG TABLET PO ONE (08:49)
[2017-04-20 08:54] LABS: Albumin 2.7 G/DL (3.4-5.0); Bilirubin,Total 0.5 MG/DL (0.2-1.0); Calcium 8.2 MG/DL (8.5-10.1); Total Protein 5.1 G/DL (6.4-8.3)
[2017-04-20 08:55] LABS: Osmolality,Calculated 298.8 MOS/KG (273-304)
[2017-04-20 09:24] LABS: Total Protein 5.1 G/DL (6.4-8.3)
[2017-04-20 10:17] LABS: Immunoglobulin G (Chem) 457 MG/DL (700-1600); Immunoglobulin M (Chem) 24 MG/DL (40-230); Total Protein (Chem) 5.1 G/DL (6.4-8.3)
[2017-04-20 10:18] LABS: Immuno Free Light Chain Kappa 2.36 MG/DL (0.33-1.94); Immuno Free Light Chain Lambda 0.85 MG/DL (0.57-2.63); Immuno Free Light Chain Ratio 2.78 MG/DL (0.26-1.65); Immunoglobulin A (Chem) 372 MG/DL (70-400)
[2017-04-20 11:47] VITALS: BP 123/77
--- NOTE | 2017-04-20 13:38 | Discharge Summary ---
Hospital Course - Hospital Course Hospital Course: Discharge diagnosis: 1. COPD with acute exacerbation 2. Atrial fibrillation 3. Deconditioning 4. Multiple myeloma The patient presented to the hospital with dyspnea. He was found to be in a COPD exacerbation. This was treated appropriately. Dyspnea improved. He complained of some weakness, and requested swing bed referral. We had some difficulty arranging this due to the fact that he is receiving some sort of immunologic therapy for his multiple myeloma. Eventually, we find an accepting facility. He is now ready for transfer. Medication reconciliation has been performed. Regular diet. Activity as tolerated. This note was completed using [employer] voice recognition software. There may be lubrication technician errors as a result. Diagnosis - Discharge Diagnosis (1) COPD with exacerbation Status: Acute Discharge Plan - Discharge Data Disposition: Swing Bed, Hos Based, [facility] Condition at Discharge: Stable Discharge Diet: advance to your usual diet Activity: as per physical therapy Hygiene: no restrictions - Discharge Medications Continue Ipratropium/Albuterol Inhaler [Combivent Respimat Inhaler] 1 puff INH QID Pantoprazole Tab [Protonix Tab] 40 mg PO DAILY Apixaban [Eliquis] 2.5 mg PO BID Budesonide/Formoterol 160-4.5 [Symbicort 160-4.5] 2 puff INH BID Metoprolol Succinate 100 mg PO DAILY Albuterol/Ipratropium Neb [Duoneb] 3 ml RESP TX RT BID Diltiazem Cd Cap [Cardizem CD] 1 tablet PO DAILY - Follow Up or Referral - Forms/Instructions Exam - Constitutional Vitals: Period Temp Pulse Resp BP Sys/Persaud Pulse Ox Last 24 Hr 97.2 F-98.5 F 61-97 16-20 123-132/73-81 80-100 Vital signs are noted above. Heart is irregular with no murmur. He has a few scattered rhonchi. Abdomen is soft with no mass. He is awake and alert. Discharge Results Procedures and tests throughout hospitalization: Pending Orders 04/15/17 04:50 Occult Blood, Stool Routine 04/20/17 08:05 Immunofixation Electro Serum Stat Immunoglob Free Light Chains Stat Serum Protein Electrophoresis Stat 04/21/17 04:00 Basic Metabolic Panel IN AM CBC [Comp Blood Count Auto Diff] IN AM Labs on day of discharge: Labs from last 24 hours 0904/20/17 04/20/17 11:29 08:05 08:05 WBC 9.2 RBC 3.04 L Hgb 10.2 L Hct 31.2 L MCV 102.6 H MCH 34 MCHC 32.7 RDW 14.2 Plt Count 190 MPV 12.1 H Neut % (Auto) 96.2 H Lymph % (Auto) 1.1 L [place] % (Auto) 1.5 L Eos % (Auto) 0.0 Baso % (Auto) 0.1 Neut # (Auto) 8.8 H Lymph # (Auto) 0.1 L [place] # (Auto) 0.1 L Eos # (Auto) 0.0 Baso # (Auto) 0.0 Total Counted 100 Immature Gran % 1.1 Nucleated RBC % 0.0 Immature Gran # 0.10 Segmented Neutrophils 92 H Band Neutrophils 1 Lymphocytes 2 L Monocytes 5 Nucleated RBCs # 0.00 Platelet Estimate Adequate Immature Plt Fraction 0.0 Hypochromasia 1+ Macrocytosis 1+ Sodium 144 Potassium 4.0 Chloride 103 Carbon Dioxide 38 H Anion Gap 7.0 BUN 44 H Creatinine 0.60 L GFR Calculation 116 BUN/Creatinine Ratio 73.00 H Glucose 126 H POC Glucose 153 H Calculated Osmolality 298.8 Calcium 8.2 L Total Bilirubin 0.50 AST 10 ALT 17 Alkaline Phosphatase 135 H Lactate Dehydrogenase 206 Total Protein 5.1 L Albumin 2.7 L Globulin 2.4 Albumin/Globulin Ratio 1.1 IgG IgG Total IgA IgA Total IgM IgM Total Pro Electrophoresis Int Serum Total Protein PEP Albumin (PEP) Albumin (relative) Dwbhu-7-Folmaiyf Rwoog-3-Rwvmmceu rel Szizn-1-Qtekqsan Svnxn-1-Pmawqvyd rel Lxew-0-Fjekuqan Rove-2-Xxkcvbpg rel Gamma Globulins Gamma Globulins rel MARCI Interpretation Free [place] Light Chains Free Lambda Light Chain Free [place]/Lambda Ratio 04/20/17 04/20/17 04/20/17 08:05 08:05 07:33 WBC RBC Hgb Hct MCV MCH MCHC RDW Plt Count MPV Neut % (Auto) Lymph % (Auto) [place] % (Auto) Eos % (Auto) Baso % (Auto) Neut # (Auto) Lymph # (Auto) [place] # (Auto) Eos # (Auto) Baso # (Auto) Total Counted Immature Gran % Nucleated RBC % Immature Gran # Segmented Neutrophils Band Neutrophils Lymphocytes Monocytes Nucleated RBCs # Platelet Estimate Immature Plt Fraction Hypochromasia Macrocytosis Sodium Potassium Chloride Carbon Dioxide Anion Gap BUN Creatinine GFR Calculation BUN/Creatinine Ratio Glucose POC Glucose 133 H Calculated Osmolality Calcium Total Bilirubin AST ALT Alkaline Phosphatase Lactate Dehydrogenase Total Protein 5.1 L Albumin Globulin Albumin/Globulin Ratio IgG 457 L IgG Total 457 L IgA 372 IgA Total 372 IgM 24 L IgM Total 24 L Pro Electrophoresis Int Pending Serum Total Protein PEP 5.1 L Albumin (PEP) Pending Albumin (relative) Pending Naowh-5-Egwntfsj Pending Rzodw-5-Otzqphwt rel Pending Pifsl-5-Agfzjogc Pending Zylny-2-Fbypvwyn rel Pending Dfcv-3-Kjwsrhdc Pending Jnde-9-Jkwmbrmp rel Pending Gamma Globulins Pending Gamma Globulins rel Pending MARCI Interpretation See comment Free [place] Light Chains 2.36 H Free Lambda Light Chain 0.85 Free [place]/Lambda Ratio 2.78 H 04/19/17 04/19/17 19:56 16:18 WBC RBC Hgb Hct MCV MCH MCHC RDW Plt Count MPV Neut % (Auto) Lymph % (Auto) [place] % (Auto) Eos % (Auto) Baso % (Auto) Neut # (Auto) Lymph # (Auto) [place] # (Auto) Eos # (Auto) Baso # (Auto) Total Counted Immature Gran % Nucleated RBC % Immature Gran # Segmented Neutrophils Band Neutrophils Lymphocytes Monocytes Nucleated RBCs # Platelet Estimate Immature Plt Fraction Hypochromasia Macrocytosis Sodium Potassium Chloride Carbon Dioxide Anion Gap BUN Creatinine GFR Calculation BUN/Creatinine Ratio Glucose POC Glucose 122 H 120 H Calculated Osmolality Calcium Total Bilirubin AST ALT Alkaline Phosphatase Lactate Dehydrogenase Total Protein Albumin Globulin Albumin/Globulin Ratio IgG IgG Total IgA IgA Total IgM IgM Total Pro Electrophoresis Int Serum Total Protein PEP Albumin (PEP) Albumin (relative) Mbucn-0-Menmkjhu Woaxe-3-Vrturaso rel Dbili-8-Wqkdyaev Tybes-9-Nimqrjbf rel Dyeu-4-Afxbuxvi Xyeu-7-Oxaiblfn rel Gamma Globulins Gamma Globulins rel MARCI Interpretation Free [place] Light Chains Free Lambda Light Chain Free [place]/Lambda Ratio DS: Provider Date of admission: 04/14/17 23:18 Primary care physician: . No PCP Attending physician on admission: Gianna Rodriguez MD Consults: 04/14/17 23:19 Consult to Dietitian [CONS] Routine Reason for Dietitian: Diet Recommendations 04/14/17 23:20 Consult to Case Mgmt/Social Srvs [CONS] Routine Reason for Case Mgmt/Social Srvs: Discharge Planning Consult Comment: wants SNF placement Consult to Occupational Therapy [CONS] Routine Reason for Occupational Therapy: Evaluate and Treat Consult to Physical Therapy [CONS] Routine Reason for Physical Therapy: Evaluate and Treat 04/19/17 11:36 Consult to Physician [CONS] Routine Comment: Patient of yours with MM Consulting Provider: Naveen Fulton When should Consulting Provider be notified: Now Consult to Specialist Group: Oncology Person Notified: DUSTIN Date Notified: 04/19/17 Time Notified: 11:50 Discharging clinician: Den Linton MD Expected date of discharge: 04/20/17
[2017-04-21 07:18] LABS: Albumin (SPE) 3.2 G/DL (3.2-5.3); Albumin (SPE) Rel % 63.5 %; Alpha 1 (SPE) 0.2 G/DL (0.1-0.4); Alpha 1 (SPE) Rel % 3.6 %; Alpha 2 (SPE) 0.6 G/DL (0.4-1.0); Alpha 2 (SPE) Rel % 12.5 %; Beta (SPE) 0.5 G/DL (0.5-1.1); Gamma (SPE) 0.6 G/DL (0.7-1.7)
[2017-04-21 07:21] LABS: Gamma (SPE) Rel % 11.1 %
== END 2017-04-20 15:13 | disposition swing bed (61) | DRG 190 ==
LOC: EDUNIT# → N.ED 19:19 → N.EDINP 23:18 → SUATTDRO 23:18 → N.TELEN 23:54
PROVIDERS: ADMIT Internal Medicine; ATTEND Internal Medicine Geriatric Medicine